=== PATIENT | female | born 1985 ===

== ENCOUNTER 2019-10-08 12:57 | Day surgery (SDC) | payer OTHER ==
[2019-10-08 13:31] VITALS: BP 111/56; TEMP 98.5; BMI 23.6
[2019-10-08] MEDS ORDERED: hydrALAZINE 20 MG/ML VIAL SLOW IVP PRN (14:39)
--- NOTE | 2019-10-08 15:37 | CON ---
DATE OF CONSULTATION: 10/08/2019 PRIMARY OB: Dr. Brigitte Kendall. CHIEF COMPLAINT: Bloody show. HISTORY OF PRESENT ILLNESS: The patient is a 34-year-old, G2, P1 female with an intrauterine at 40 weeks and 0 days, presenting to Labor and Delivery with concerns for bloody show. The patient reports that she has had on couple occasions today noted some mucusy bloody discharge with wiping that she had felt come out. She denies any bleeding like a period or persistent bleeding. She denies leakage of fluid. She reports she has been having increasing intensity of her contractions and also increasing frequency. The patient at this point is scheduled for a repeat tomorrow should she not enter active labor on her own. The patient denies any recent illness, fever, fall, headache, chest pain, shortness of breath, nausea, vomiting, diarrhea, constipation, hip problems, knee problems, muscle weakness, or any new rashes. Vaginal bleeding per HPI. No urinary urgency or frequency. PAST MEDICAL HISTORY: Negative. PAST SURGICAL HISTORY: for nonreassuring heart tones. ALLERGIES: NO KNOWN DRUG ALLERGIES. MEDICATIONS: vitamins. SOCIAL HISTORY: Denies drug, alcohol, or tobacco use. OB LABS: Blood type is B positive. Antibody screen is negative. VDRL is nonreactive. Hepatitis B surface antigen is nonreactive. HIV is negative. GC and chlamydia are negative. She is rubella immune. Third trimester HIV is negative. Third trimester VDRL is negative. She is GBS negative. REVIEW OF SYSTEMS: Per HPI. PHYSICAL EXAMINATION: VITAL SIGNS: Blood pressure is 111/56, heart rate of 87, saturating 99% on room air, temperature 98.5. GENERAL: She appears to be in no acute distress. She is alert and oriented, cooperative and pleasant to interact with. HEAD: Normocephalic and atraumatic. LUNGS: Clear to auscultation bilaterally. HEART: Has a regular rate and rhythm. ABDOMEN: Gravid, soft, and nontender in between contractions. EXTREMITIES: Nontender. Nonedematous. : Per nursing staff, cervix is 1, 50, -2 station. heart tracing shows the fetus with a baseline in the 130s with moderate long-term variability, positive 15 x 15 accelerations, no decelerations. Contractions about every 2 to 4 minutes apart. ASSESSMENT AND PLAN: The patient is a 34-year-old female with an intrauterine at 40 weeks, here with some bloody show. She has evidence of latent labor, which would be a good reason for the bloody show she is describing. Fetus has a category 1 tracing and reactive NST. Reassurance has been given to the patient. She has been given the option of pain medication for temporary pain relief versus staying in a walking for few hours or staying here in a reclined position for couple hours to get rechecked or to go home and return as needed. The patient has opted to go home, where she can be more comfortable. She has been given term labor precautions and instructions to return should she have increased intensity in frequency of contractions, leakage of fluid for concerns of rupture of membranes, bleeding like a period, or other concerns related to this . The patient is being discharged home. She has an appointment tomorrow for a scheduled repeat , which is to be performed should the patient not enter labor on her own. Job ID: [id number]
== END 2019-10-08 14:05 | disposition home or self-care (01) ==
LOC: L&D/OP 12:57
PROVIDERS: ATTEND Student in an Organized Health Care Education/Training Program
DX: O99.89 Other specified diseases and conditions complicating pregnancy, childbirth and the puerperium (principal); N89.8 Other specified noninflammatory disorders of vagina; O48.0 Post-term pregnancy; O09.523 Supervision of elderly multigravida, third trimester; Z3A.40 40 weeks gestation of pregnancy
CPT/HCPCS: 99282

== ENCOUNTER 2019-10-09 04:03 | Inpatient (IN) | payer OTHER ==
[2019-10-09 04:31] VITALS: BMI 23.6
[2019-10-09] MEDS ORDERED: Butorphanol Tartrate 1 MG/ML VIAL ONE (05:05)
[2019-10-09] MEDS ORDERED: Ondansetron PF 4 MG/2 ML Vial IVP PRN ×3 (05:07→19:09)
[2019-10-09] MEDS ORDERED: hydrALAZINE 20 MG/ML VIAL SLOW IVP PRN ×2 (05:07→10:27)
[2019-10-09] MEDS ORDERED: Butorphanol Tartrate 1 MG/ML VIAL SLOW IVP PRN (05:07)
[2019-10-09] MEDS ORDERED: CEFAZOLIN 2 GM in Premix Bag 1 BAG IVPB SCH (05:15)
[2019-10-09] MEDS ORDERED: Bicitra 30 ML UDCUP PO SCH (05:15)
[2019-10-09 05:28] LABS: Mean Corpuscular HGB CONC 32.9 g/dL (32.0-36.0); Mean Corpuscular Hemoglobin 30.8 pg (27.0-31.0); Mean Corpuscular Volume 93.8 fL (78.0-98.0); Mean Platelet Volume 8.8 fL (7.4-10.4); Platelet Count 309 thou/uL (130-400); RBC Distribution Width 12.1 % (11.5-14.5); White Blood Cell (WBC) Count 14.5 thou/uL (4.8-10.8)
[2019-10-09 06:11] LABS: HBSAg Index 0.25 S/CO (0-0.99); Hep B Surf Ag Non-Reactive S/CO (NonReactive); Syphilis Antibody Nonreactive (Nonreactive); Syphilis Antibody Index 0.04 S/CO (<1.00 Non-Reactive)
[2019-10-09] MEDS: Lactated Ringer's 1,000 ML IV SCH ×3 (06:28→17:39)
[2019-10-09] MEDS ORDERED: MORPHINE 5 MG/10 ML PF VIAL ONE (06:55)
[2019-10-09] MEDS ORDERED: Oxytocin 10 UNITS/ML VIAL ONE ×2 (06:56→08:02)
--- NOTE | 2019-10-09 07:42 | PDOC.OPDEL ---
OB Operative/Delivery Note Delivery Dr/Surgeon: Enoch Assist: Marifer Pre-Delivery Diagnosis: scheduled section (sterilization) Procedure/Post Delivery Dx: repeat low transverse CS (and bilateral salpingectomy) Weeks gestation: 40 Anesthesia: spinal - Findings A Sex: male - 1 min: 8 - 5 min: 9 - Additional Findings/Plan Placenta delivered: spontaneous findings: low transverse hysterotomy without extension, normal uterus, normal tubes, normal ovaries Estimated blood loss: 350 Post delivery plan: routine recovery
[2019-10-09] MEDS ORDERED: Lanolin Ointment 7 GM TUBE TOP PRN (10:27)
[2019-10-09] MEDS ORDERED: Promethazine HCl 25 MG/ML VIAL IM PRN ×2 (10:27→19:09)
[2019-10-09] MEDS ORDERED: Adacel (T-DAP) 0.5 ML SYRINGE IM ONE (10:27)
[2019-10-09] MEDS ORDERED: Bisacodyl 10 MG SUPP PR PRN (10:27)
[2019-10-09] MEDS ORDERED: HYDROcodone/Acetaminophen 5/325 mg Tablet PO PRN ×2 (10:27)
[2019-10-09] MEDS ORDERED: diphenhydrAMINE 25 MG CAP PO PRN (10:27)
[2019-10-09] MEDS ORDERED: Zolpidem Tartrate 5 MG TAB PO PRN (10:27)
[2019-10-09] MEDS ORDERED: Acetaminophen 325 MG TAB PO PRN (10:27)
[2019-10-09] MEDS: Prenatal Vitamin 1 TAB PO SCH (17:00)
[2019-10-09] MEDS: Ibuprofen 800 MG TAB PO SCH ×2 (17:01→22:00)
[2019-10-09] MEDS ORDERED: Naloxone HCl 0.4 mg/ml Vial IV PRN (19:09)
[2019-10-09] MEDS ORDERED: diphenhydrAMINE 50 MG/ML VIAL IVP PRN (19:09)
[2019-10-09] MEDS ORDERED: Promethazine HCl 25 MG SUPP PR PRN (19:09)
[2019-10-09] MEDS ORDERED: Naloxone HCl 0.4 mg/ml Vial IVP PRN ×2 (19:09)
[2019-10-09] MEDS ORDERED: Communication Order-Pharmacy FS SCH (19:15)
[2019-10-09] MEDS: Ketorolac Tromethamine 30 MG/ML VIAL IVP PRN (19:48)
[2019-10-09] MEDS: Ferrous Sulfate 325 MG TAB PO SCH (21:00)
[2019-10-09] MEDS: Docusate Calcium (SURFAK) 240 MG CAP PO SCH (21:00)
[2019-10-10] MEDS: Simethicone Chewable 80 MG TAB PO PRN ×3 (00:44→21:06)
--- NOTE | 2019-10-10 01:12 | PDOC.PP ---
Post Progress Note Post Day #: POD1 Subjective: Resting, c/o only mild shoulder pain. PO intake tolerated: yes Flatus: no Ambulation: no Vital Signs (12 hours) Temp Pulse Resp BP Pulse Ox 10/09/19 19:46 98.6 F 88 16 105/56 L 98 10/09/19 19:45 98 10/09/19 17:25 98.6 F 66 16 99/57 L 95 10/09/19 13:15 86 18 94/50 L Weight Weight 56.699 kg - Physical Examination General: NAD Respiratory: non-labored breathing Abdominal: no distention, appropriately TTP Skin: CS incision dry & intact Neurological: no gross focal deficits Psychiatric: normal affect Result Diagrams: 10/09/19 05:11 Additional Labs: Post Labs Blood Type B POSITIVE 10/09/19 05:41 Hep Bs Antigen Non-Reactive S/CO (NonReactive) 10/09/19 05:11 - Assessment/Plan Doing well s/p C/S. May ask for meds for pain as needed, like subdiaphramatic air as etiology Cuoch out. Clears and advance. Routine post op care.
[2019-10-10] MEDS: Ketorolac Tromethamine 30 MG/ML VIAL IVP PRN (03:36)
--- NOTE | 2019-10-10 04:21 | OP ---
DATE OF PROCEDURE: 10/09/2019 PREOPERATIVE DIAGNOSES: 1. Intrauterine at 40 weeks and 1 day. 2. Prior section x1, declines trial of labor. 3. Desires sterilization. 4. Family history of breast cancer. POSTOPERATIVE DIAGNOSES: 1. Intrauterine at 40 weeks and 1 day. 2. Prior section x1, declines trial of labor. 3. Desires sterilization. 4. Family history of breast cancer. PROCEDURE PERFORMED: Repeat low transverse section and bilateral salpingectomy via Pfannenstiel skin incision. ANESTHESIA: Spinal. ESTIMATED BLOOD LOSS: 350 mL. HAT FORMING MACHINE FEEDER SURGEON: Noni Caicedo PA-C COMPLICATIONS: None. DRAINS: Couch catheter. PATHOLOGY: Bilateral fallopian tubes. FINDINGS: Male infant, cephalic presentation, clear amniotic fluid, Apgars of 8 and 9. Weight is pending. Hysterotomy without extension. Normal uterus, ovaries, and tubes bilaterally and excellent hemostasis. DESCRIPTION OF PROCEDURE: The patient was taken to the operating room, where spinal anesthesia was obtained without difficulty. The patient was prepped and draped in a sterile fashion in dorsal supine position with leftward tilt. After ensuring adequacy of anesthesia, a Pfannenstiel skin incision was made and carried down to the underlying subcutaneous tissue with a knife. The patient's old keloid scar was also removed by placing Allis clamps on the scar and incising with a knife. The fascia was nicked in the midline with a knife and carried laterally with the Sanders scissors. The superior aspect of the fascia was tented with 2 Kochers and dissected off the rectus with Sanders scissors. The inferior aspect of the fascia was tented with 2 Kochers and dissected off the rectus with the Sanders's down to the pubic symphysis. The peritoneum was bluntly entered into and manually retracted. The Chad O retractor was placed. The vesicouterine peritoneum was incised with the Metzenbaum's. The lower uterine segment was incised in a transverse fashion and extended with a Sloan maneuver. The infant's head was brought to the hysterotomy and delivered with fundal pressure. The body was delivered and an infant cord was clamped and infant handed to awaiting Keegan team. The cord blood was obtained. The placenta was allowed to spontaneously deliver. The uterus was then cleared of all clots and debris and repaired with a #1 Monocryl in a running locking fashion with excellent hemostasis. The lap was placed over the hysterotomy and the uterus was exteriorized. The right fallopian tube was grasped with the Nichol clamp and a window was made in the mesosalpinx and between the spiral arteries. The spiral arteries were then clamped with hemostats as well as the medial fallopian tube with the uterine cornua. These were incised with the Metzenbaums and fallopian tube was handed off for pathology. The pedicles were then ligated as well as the fallopian tube with 2-0 chromic and hemostasis was noted to be excellent. The same procedure was performed on the contralateral side and again noting hemostasis. The uterus was placed back into the abdomen. The hysterotomy was irrigated as well as the fallopian tube sites. Hemostasis was noted. All instruments were removed out the abdomen. The rectus muscles were examined and noted to be hemostatic. The fascia was reapproximated with 0 PDS x1 suture with excellent reapproximation. The subcutaneous tissue was irrigated and cauterized of any bleeders and reapproximated with a 2-0 plain gut in a running fashion. The skin was closed with 4-0 Monocryl in subcuticular fashion. Dermabond was applied as well as a pressure dressing. The patient tolerated the procedure well. Sponge, lap, and needle counts correct x2. The patient was taken to recovery room in stable condition. The patient received Ancef 2 g prior to the procedure. Job ID: [id number]
[2019-10-10 06:36] LABS: Hemoglobin 8.9 g/dL (12.0-16.0); Mean Corpuscular HGB CONC 32.6 g/dL (32.0-36.0); Mean Corpuscular Hemoglobin 30.7 pg (27.0-31.0); Mean Corpuscular Volume 94.4 fL (78.0-98.0); Mean Platelet Volume 8.6 fL (7.4-10.4); Platelet Count 272 thou/uL (130-400); RBC Distribution Width 12.3 % (11.5-14.5); Red Blood Cell (RBC) Count 2.88 mill/uL (4.20-5.40); White Blood Cell (WBC) Count 16.4 thou/uL (4.8-10.8)
[2019-10-10] MEDS ORDERED: HYDROcodone/Acetaminophen 5/325 mg Tablet PO PRN (07:15)
[2019-10-10] MEDS ORDERED: Zolpidem Tartrate 5 MG TAB PO PRN (07:15)
[2019-10-10] MEDS: Prenatal Vitamin 1 TAB PO SCH (09:44)
[2019-10-10] MEDS: Ferrous Sulfate 325 MG TAB PO SCH ×2 (09:44→21:03)
[2019-10-10] MEDS: Docusate Calcium (SURFAK) 240 MG CAP PO SCH ×2 (09:45→21:03)
[2019-10-10] MEDS: Ibuprofen 800 MG TAB PO SCH ×3 (14:00→21:03)
[2019-10-10] MEDS: HYDROcodone/Acetaminophen 5/325 mg Tablet PO PRN ×2 (14:45→18:51)
[2019-10-11] MEDS: HYDROcodone/Acetaminophen 5/325 mg Tablet PO PRN ×2 (00:27→05:02)
--- NOTE | 2019-10-11 03:03 | PDOC.PP ---
Post Progress Note Post Day #: 2 Subjective: Patient doing well. No significant overnight events. Patient does endorse incision pain and pain with ambulation. However, both are tolerable. Patient states lochia less than period. She desires to go home today. PO intake tolerated: yes Flatus: yes Ambulation: yes Vital Signs (12 hours) Temp Pulse Resp BP Pulse Ox 10/10/19 19:30 98.1 F 97 18 89/50 L 98 10/10/19 17:00 98.5 F 101 H 18 101/52 L Weight Weight 56.699 kg - Physical Examination General: NAD Cardiovascular: RRR Respiratory: non-labored breathing Abdominal: + bowel sounds, no distention, appropriately TTP Fundus firm & at: just below umbilicus Extremities: negative homans (B) Skin: no rash Deviation from normal: Right side of incision with poor approximation. No leaking from sight. Neurological: no gross focal deficits Psychiatric: A&Ox3, normal affect Result Diagrams: 10/10/19 05:27 Additional Labs: Post Labs Blood Type B POSITIVE 10/09/19 05:41 Hep Bs Antigen Non-Reactive S/CO (NonReactive) 10/09/19 05:11 (1) S/P repeat low transverse Code(s): Z98.891 - HISTORY OF UTERINE SCAR FROM PREVIOUS SURGERY Status: Acute (2) Term delivered Code(s): O80 - ENCOUNTER FOR FULL-TERM UNCOMPLICATED DELIVERY Status: Acute - Assessment/Plan Routine PP care - s/p rLTCS, POD #2 - Meeting PP milestones - Rubella immune, Rh positive - Incision clean, dry. Right side of incision not well approximated. No evidence of seroma or oozing from sight. Precautions provided. Dispo: Patient doing well. Plan for d/c home today.
[2019-10-11] MEDS: Ibuprofen 800 MG TAB PO SCH (05:02)
[2019-10-11 08:21] VITALS: BP 104/55; TEMP 98.6
[2019-10-11] MEDS: Docusate Calcium (SURFAK) 240 MG CAP PO SCH (09:49)
[2019-10-11] MEDS: Ferrous Sulfate 325 MG TAB PO SCH (09:49)
[2019-10-11] MEDS: Prenatal Vitamin 1 TAB PO SCH (09:49)
== END 2019-10-11 10:15 | disposition home or self-care (01) | DRG 785 ==
LOC: L&D/OP 04:03 → L&D 08:14 → 3SW 10:38
PROVIDERS: ADMIT Student in an Organized Health Care Education/Training Program; ATTEND Student in an Organized Health Care Education/Training Program
PROC: 10D00Z1 Extraction of Products of Conception, Low, Open Approach (ICD-10-PCS; principal; 2019-10-10)
PROC: 0UB70ZZ Excision of Bilateral Fallopian Tubes, Open Approach (ICD-10-PCS; 2019-10-10)
DX: O34.211 Maternal care for low transverse scar from previous cesarean delivery (principal); O48.0 Post-term pregnancy; Z3A.40 40 weeks gestation of pregnancy; Z37.0 Single live birth; Z80.3 Family history of malignant neoplasm of breast
CPT/HCPCS: 36415; 51702; 85027; 86780; 86850; 86900; 86901; 87340; 88302; 99282; 99285; J0595; J0690; J1885; J2274; J2590